=== PATIENT | female | born 1990 | race Caucasian/White ===

== ENCOUNTER → 2025-02-24 16:43 | Outpatient (REF) | payer OTHER, SELFPAY | LOC: RAD 16:43 | PROVIDERS: ATTENDING PHYSICIAN Nurse Practitioner Women's Health; FAMILY PHYSICIAN Internal Medicine | DX: Z34.90 Encounter for supervision of normal pregnancy, unspecified, unspecified trimester (principal); O36.80X0 Pregnancy with inconclusive fetal viability, not applicable or unspecified | CPT/HCPCS: 76801 ==